=== PATIENT | female | born 1960 | race Caucasian/White ===

== ENCOUNTER 2016-08-11 21:44 | Emergency (ER) | payer SELFPAY ==
[~2016-08-11] VITALS: Ht 162.6 cm; Wt 68.0 kg
[2016-08-11 22:29] LABS: BLOOD UREA NITROGEN 10 mg/dL (7-18)
[2016-08-11 22:33] LABS: ASPARTATE AMINO TRANSFERASE 20 U/L (15-37)
[2016-08-11 22:35] LABS: ACETAMINOPHEN < 2 mcg/mL (10-30)
[2016-08-11 22:35] LABS: DAU SCREEN DISCLAIMER
[2016-08-11 23:22] VITALS: BP 106/75
== END 2016-08-12 02:40 | disposition home or self-care (01) ==
LOC: ED 23:59
DX: F32.9 Major depressive disorder, single episode, unspecified (principal); F10.129 Alcohol abuse with intoxication, unspecified; Z88.0 Allergy status to penicillin; Z90.710 Acquired absence of both cervix and uterus
CPT/HCPCS: 36415; 80053; 80307; 80329; 85025; 93005; 99285; G0480

== ENCOUNTER 2016-12-28 11:59 | Emergency (ER) | payer SELFPAY ==
[~2016-12-28] VITALS: Ht 162.6 cm; Wt 55.4 kg
[2016-12-28] MEDS ORDERED: KETOROLAC 30 MG/1 ML IVPush ONE (12:30)
[2016-12-28] MEDS ORDERED: SODIUM CHLORIDE FLUSH 10ML SYR IVF ONE (12:30)
[2016-12-28] MEDS ORDERED: KETOROLAC 30 MG/1 ML ONE (12:34)
[2016-12-28 12:59] LABS: HEMATOCRIT 44.3 % (34.6-47.8); HEMOGLOBIN 15.4 g/dL (11.7-16.4); WHITE BLOOD COUNT 10.4 x10^3/uL (3.4-10)
[2016-12-28 13:04] LABS: RAPID INFLUENZA A Negative (Negative); RAPID INFLUENZA B Negative (Negative)
[2016-12-28 13:08] LABS: BLOOD UREA NITROGEN 8 mg/dL (7-18)
[2016-12-28 13:47] VITALS: BP 120/85
== END 2016-12-28 14:24 | disposition home or self-care (01) ==
LOC: ED 14:20
DX: J20.8 Acute bronchitis due to other specified organisms (principal); B96.89 Other specified bacterial agents as the cause of diseases classified elsewhere; F32.9 Major depressive disorder, single episode, unspecified
CPT/HCPCS: 36415; 71020; 80048; 82040; 83605; 83880; 84484; 85025; 85379; 87040; 87400; 93005; 96374; 99285; J1885

== ENCOUNTER 2017-10-29 03:01 | Observation (INO) | payer MEDICAID, OTHER ==
[~2017-10-29] VITALS: Ht 162.6 cm; Wt 57.3 kg
[2017-10-29] MEDS ORDERED: OMNIPAQUE 350 MG/ML, 100ML BOTTLE ONE (03:23)
[2017-10-29 03:38] LABS: MEAN CORPUSCULAR HEMOGLOBIN 38.5 pg (27.0-34.8); MEAN CORPUSCULAR VOLUME 110.1 fL (80-100); MEAN PLATELET VOLUME 7.3 fL (7.4-10.4); PLATELET COUNT 195 x10^3/uL (130-400); RED BLOOD COUNT 3.65 x10^6/uL (3.82-5.3); RED CELL DISTRIBUTION WIDTH 12.7 % (9.6-15.2)
[2017-10-29 03:41] LABS: INTERNATIONAL NORMALIZED RATIO 1.05 (0.93-1.1); PROTHROMBIN TIME 10.9 Seconds (9.6-11.5)
[2017-10-29 03:54] LABS: TROPONIN I < 0.015 ng/mL (0.000-0.045)
[2017-10-29] MEDS ORDERED: BICT1TAB PO (04:22)
[2017-10-29] MEDS ORDERED: SODIUM CHLORIDE 0.9% 1,000 ML IV ONE (04:27)
[2017-10-29] MEDS ORDERED: ASPIRIN 81 MG TABLET CHEW PO ONE (04:30)
[2017-10-29] MEDS ORDERED: ASPIRIN 81 MG TABLET CHEW ONE (04:31)
[2017-10-29 04:32] LABS: BASOPHILS # (AUTO) 0.01 x10^3/uL (0-0.1); BASOPHILS % (AUTO) 0 % (0-1); EOSINOPHILS # (AUTO) 0.05 x10^3/uL (0-0.4); EOSINOPHILS % (AUTO) 1 % (1-7); LYMPHOCYTES # (AUTO) 2.75 x10^3/uL (1-3.4); LYMPHOCYTES % (AUTO) 43 % (22-44); MD SCAN; MONOCYTES # (AUTO) 0.49 x10^3/uL (0.2-0.8); MONOCYTES % (AUTO) 8 % (2-9); NEUTROPHILS # (AUTO) 3.03 x10^3/uL (1.8-6.8); NEUTROPHILS % (AUTO) 48 % (42-75)
[2017-10-29 06:30] VITALS: BP 149/100
[2017-10-29 06:36] VITALS: BP 149/100
[2017-10-29 08:29] VITALS: BP 156/97
[2017-10-29] MEDS ORDERED: SODIUM CHLORIDE 0.9% 1,000 ML IV SCH (10:34)
[2017-10-29] MEDS ORDERED: LABETALOL 5MG/ML, 20ML IVPush PRN (11:00)
[2017-10-29] MEDS ORDERED: ENALAPRILAT 1.25 MG/ML, 2ML IVPush PRN (11:00)
[2017-10-29] MEDS ORDERED: ONDANSETRON 2MG/ML, 2ML IVPush PRN (11:00)
[2017-10-29] MEDS: NICOTINE 14MG/24 HR PATCH.TD24 TD SCH (11:30)
[2017-10-29] MEDS: HEPARIN 5,000 UNITS/ML, 1ML SQ SCH ×2 (11:32→20:29)
[2017-10-29 12:20] LABS: THYROID STIMULATING HORMONE 1.7 mIU/L (0.358-3.740)
[2017-10-29] MEDS ORDERED: MAGNESIUM SULFATE PMX 2GM/50ML 50 ML IV ONE (12:30)
[2017-10-29] MEDS: IBUPROFEN 200 MG TABLET PO PRN ×2 (12:31→20:30)
[2017-10-29 12:44] LABS: HEMOGLOBIN A1C 4.8 % (4.2-6.3)
[2017-10-29 13:54] VITALS: BP 160/97
[2017-10-29 18:33] VITALS: BP 158/94
[2017-10-30 01:06] VITALS: BP 124/84
[2017-10-30 05:01] LABS: MEAN CORPUSCULAR HEMOGLOBIN 38.4 pg (27.0-34.8); MEAN CORPUSCULAR HGB CONC 34.7 g/dL (32.4-35.8); MEAN CORPUSCULAR VOLUME 110.8 fL (80-100); MEAN PLATELET VOLUME 7.9 fL (7.4-10.4); PLATELET COUNT 169 x10^3/uL (130-400); RED BLOOD COUNT 3.74 x10^6/uL (3.82-5.3); RED CELL DISTRIBUTION WIDTH 12.9 % (9.6-15.2)
[2017-10-30 05:12] LABS: CHLORIDE 112 mmol/L (98-107)
[2017-10-30] MEDS: HEPARIN 5,000 UNITS/ML, 1ML SQ SCH ×2 (05:15→12:25)
[2017-10-30 05:28] LABS: ANION GAP 8 mmol/L (5-15); CALCIUM 8.6 mg/dL (8.5-10.1); CHOL/HDL RATIO 2.9; CHOLESTEROL, TOTAL 202 mg/dL (140-239); CREATININE 0.68 mg/dL (0.55-1.02); HDL CHOL % 35 % (28-40); HDL CHOLESTEROL (DIRECT) 70 mg/dL (40-60); LDL CHOLESTEROL,CALCULATED 117 mg/dL (54-169); LDL/HDL RATIO 1.7 (0.5-3.0); TRIGLYCERIDES 73 mg/dL (50-200); VLDL CHOLESTEROL 15 mg/dL (0-25)
[2017-10-30 06:43] LABS: BASOPHILS # (AUTO) 0.02 x10^3/uL (0-0.1); BASOPHILS % (AUTO) 0 % (0-1); EOSINOPHILS # (AUTO) 0.05 x10^3/uL (0-0.4); EOSINOPHILS % (AUTO) 1 % (1-7); LYMPHOCYTES # (AUTO) 1.97 x10^3/uL (1-3.4); LYMPHOCYTES % (AUTO) 43 % (22-44); MD NO; MONOCYTES # (AUTO) 0.38 x10^3/uL (0.2-0.8); MONOCYTES % (AUTO) 8 % (2-9); NEUTROPHILS # (AUTO) 2.22 x10^3/uL (1.8-6.8); NEUTROPHILS % (AUTO) 48 % (42-75)
[2017-10-30] MEDS ORDERED: POTASSIUM CHLORIDE 20 MEQ TAB.ER.PRT PO ONE (09:00)
[2017-10-30] MEDS ORDERED: BIKTARVY PO SCH (09:00)
[2017-10-30 10:01] VITALS: BP 131/92
[2017-10-30] MEDS: NICOTINE 14MG/24 HR PATCH.TD24 TD SCH (10:12)
[2017-10-30] MEDS ORDERED: ASPI-515 PO (11:41)
[2017-10-30] MEDS ORDERED: ATOR40TA78 PO (11:41)
[2017-10-30 12:39] VITALS: BP 137/91
== END 2017-10-30 13:25 | disposition home or self-care (01) ==
LOC: ED 03:43 → INTOOBSV 04:27 → EDIP 04:27 → 5SO 06:33 → DCLOUNGE 10-30 13:14
PROVIDERS: ADMIT Family Medicine; ATTEND Family Medicine
DX: R53.1 Weakness (principal); I10 Essential (primary) hypertension; F10.120 Alcohol abuse with intoxication, uncomplicated; F17.200 Nicotine dependence, unspecified, uncomplicated; I63.9 Cerebral infarction, unspecified; Z79.82 Long term (current) use of aspirin; Z90.710 Acquired absence of both cervix and uterus; Z88.8 Allergy status to other drugs, medicaments and biological substances; Z88.0 Allergy status to penicillin; Z88.1 Allergy status to other antibiotic agents; Z79.899 Other long term (current) drug therapy
CPT/HCPCS: 36415; 70450; 70496; 70498; 70551; 71045; 80047; 80048; 80061; 80307; 83036; 83735; 84100; 84443; 84484; 85025; 85610; 85730; 93005; 93306; 93880; 96365; 96366; 96372; 97162; 97166; 99285; G0378; J1644; J3475; J7030; Q9967

== ENCOUNTER 2019-04-24 09:59 | Emergency (ER) | payer SELFPAY ==
[~2019-04-24] VITALS: Ht 162.6 cm; Wt 49.8 kg
[~2019-04-24 09:59] MED LIST: ASPI-515 PO; ATOR40TA78 PO; BICT1TAB PO
[2019-04-24 10:05] VITALS: BP 121/87
--- NOTE | 2019-04-24 10:19 | NUR ---
FIRST CONTACT WITH PT. PT HAD R ARM BITE "MY SONS GIRLFRIEND GOT REALLY DRUNK LAST NIGHT A BIT MY ARM" PT'S AOX4. RESPS EVEN AND UNLABORED.
[2019-04-24] MEDS ORDERED: NEOSPORIN OINT. PKT 1 PACKET ONE (10:56)
== END 2019-04-24 11:03 ==
LOC: ED 10:56
DX: S50.871A Other superficial bite of right forearm, initial encounter (principal); W50.3XXA Accidental bite by another person, initial encounter; Y93.89 Activity, other specified; Y92.89 Other specified places as the place of occurrence of the external cause; Y99.8 Other external cause status
CPT/HCPCS: 99283

== ENCOUNTER 2019-04-24 21:23 | Emergency (ER) | payer BC ==
[~2019-04-24] VITALS: Ht 162.6 cm; Wt 54.0 kg
[2019-04-24 21:36] VITALS: BP 112/79
[2019-04-24] MEDS ORDERED: NEOSPORIN OINT. PKT 1 PACKET ONE (22:31)
== END 2019-04-24 23:50 | disposition home or self-care (01) ==
LOC: ED 23:30
DX: S51.852A Open bite of left forearm, initial encounter (principal); Z86.73 Personal history of transient ischemic attack (TIA), and cerebral infarction without residual deficits; W50.3XXA Accidental bite by another person, initial encounter; Y93.89 Activity, other specified; Y92.89 Other specified places as the place of occurrence of the external cause; Y99.8 Other external cause status
CPT/HCPCS: 99283

== ENCOUNTER 2019-05-02 22:00 | Emergency (ER) | payer BC ==
[~2019-05-02] VITALS: Ht 160 cm; Wt 51.0 kg
--- NOTE | 2019-05-02 22:10 | NUR ---
ASSESSMENT MADE. SEEN BY ERP. ORDERS MADE. NO STRIDOR UPON ARRIVAL TO ED. OXYGEN PLACED ON 4 LITERS, 99 %. PATIENT ALERT AND ORIENTED BUT SLEEPY.
--- NOTE | 2019-05-02 22:29 | NUR ---
patient states pain comes and goes. no pain at this time. ice chips provided. had some drinks tonight.
--- NOTE | 2019-05-02 22:57 | NUR ---
blood walked to laboratory. business services tech at bedside.
[2019-05-02 23:07] LABS: MEAN CORPUSCULAR HEMOGLOBIN 38.3 pg (27.0-34.8); MEAN CORPUSCULAR HGB CONC 33.8 g/dL (32.4-35.8); MEAN CORPUSCULAR VOLUME 113.4 fL (80-100); MEAN PLATELET VOLUME 7.6 fL (7.4-10.4); PLATELET COUNT 179 x10^3/uL (130-400); RED BLOOD COUNT 3.88 x10^6/uL (3.82-5.3); RED CELL DISTRIBUTION WIDTH 13.1 % (9.6-15.2)
[2019-05-02 23:14] LABS: ANION GAP 9 mmol/L (5-15); CALCIUM 8.8 mg/dL (8.5-10.1); CHLORIDE 109 mmol/L (98-107)
[2019-05-02 23:15] LABS: ALANINE AMINOTRANSFERASE 71 U/L (12-78)
[2019-05-02 23:17] LABS: ALKALINE PHOSPHATASE 126 U/L (45-117); BILIRUBIN,TOTAL 0.3 mg/dL (0.2-1.0); TOTAL PROTEIN 7.5 g/dL (6.4-8.2)
[2019-05-02 23:25] LABS: MD YES
[2019-05-02 23:26] LABS: EOS#(MANUAL) 0.09 x10^3/uL (0.0-0.4); EOS% (MANUAL) 1 % (1-7); LYMPH#(MANUAL) 3.74 x10^3/uL (1-3.4); LYMPHS% (MANUAL) 42 % (22-44); MONOS#(MANUAL) 0.71 x10^3/uL (0.3-2.7); MONOS% (MANUAL) 8 % (2-9); REACTIVE LYMPHS # (MANUAL) 1.34 x10^3/uL (0-0); REACTIVE LYMPHS % (MANUAL) 15 % (0-0); SEG#(MANUAL) 3.03 x10^3/uL (1.8-6.8); SEGS% (MANUAL) 34 % (42-75)
[2019-05-02 23:27] LABS: <PLATELET ESTIMATE> ADEQUATE; <PLT MORPHOLOGY> NORMAL PLT MORPH
--- NOTE | 2019-05-03 00:01 | NUR ---
patient moved to room 17. report to DEE Garcia.
--- NOTE | 2019-05-03 00:05 | NUR ---
REPORT RECEIVED FROM DEE JACOB. PLAN OF CARE DISCUSSED
--- NOTE | 2019-05-03 00:50 | NUR ---
UA COLLECTED AND SENT
[2019-05-03 00:53] LABS: MICROSCOPIC NOT IND
[2019-05-03 00:57] LABS: CULTURE INDICATED? NO
[2019-05-03 01:05] LABS: AMPHETAMINE SCREEN, URINE Negative (Negative); BARBITURATE SCREEN, URINE Negative (Negative); BENZODIAZEPINE SCREEN, URINE Negative (Negative); CANNABINOID SCREEN, URINE Negative (Negative); COCAINE SCREEN, URINE Negative (Negative); METHADONE SCREEN, URINE Negative (Negative); OPIATE SCREEN, URINE Negative (Negative)
--- NOTE | 2019-05-03 01:26 | NUR ---
radiology notified for Ultrasound no resulted yet for almost 2 hrs now.
[2019-05-03 02:29] VITALS: BP 101/68
== END 2019-05-03 03:03 | disposition home or self-care (01) ==
LOC: ED 05-03 01:13
DX: K85.20 Alcohol induced acute pancreatitis without necrosis or infection (principal); K29.20 Alcoholic gastritis without bleeding; R10.13 Epigastric pain; R10.11 Right upper quadrant pain; F10.120 Alcohol abuse with intoxication, uncomplicated; T78.49XA Other allergy, initial encounter; J98.01 Acute bronchospasm; F17.200 Nicotine dependence, unspecified, uncomplicated; R94.31 Abnormal electrocardiogram [ECG] [EKG]; Z86.73 Personal history of transient ischemic attack (TIA), and cerebral infarction without residual deficits; Y90.0 Blood alcohol level of less than 20 mg/100 ml
CPT/HCPCS: 36415; 76700; 80053; 80307; 81003; 83690; 85025; 93005; 99285

== ENCOUNTER 2020-04-30 12:14 | Emergency (ER) | payer SELFPAY ==
[~2020-04-30] VITALS: Ht 160 cm; Wt 52.6 kg
[~2020-04-30 12:14] MED LIST changes: -ASPI-515 PO; +ASPI-963 PO
--- NOTE | 2020-04-30 13:53 | NUR ---
C-COLLAR IN PLACE. PT HAS CO HEAD AND NECK PAIN FROM HITTING IT ON CEILING
--- NOTE | 2020-04-30 14:11 | NUR ---
BREAK RN: PT BACK FROM CT
[2020-04-30] MEDS ORDERED: OXYcodone/APAP 5/325MG TABLET PO ONE (14:30)
[2020-04-30] MEDS ORDERED: ONDANSETRON ODT 4 MG PO ONE (14:30)
[2020-04-30] MEDS ORDERED: ONDANSETRON ODT 4 MG ONE (14:39)
[2020-04-30] MEDS ORDERED: OXYcodone/APAP 5/325MG TABLET ONE (14:39)
[2020-04-30 14:45] VITALS: BP 118/79
--- NOTE | 2020-04-30 14:54 | NUR ---
Pt to be dc'd
== END 2020-04-30 15:11 | disposition home or self-care (01) ==
LOC: ED 15:00
DX: S16.1XXA Strain of muscle, fascia and tendon at neck level, initial encounter (principal); S06.9X1A Unspecified intracranial injury with loss of consciousness of 30 minutes or less, initial encounter; M25.511 Pain in right shoulder; Z86.73 Personal history of transient ischemic attack (TIA), and cerebral infarction without residual deficits; Z90.49 Acquired absence of other specified parts of digestive tract; Z90.710 Acquired absence of both cervix and uterus; Z98.51 Tubal ligation status; W22.8XXA Striking against or struck by other objects, initial encounter; Y93.89 Activity, other specified; Y92.89 Other specified places as the place of occurrence of the external cause; Y99.8 Other external cause status
CPT/HCPCS: 70450; 72125; 72128; 99285; Q0162